=== PATIENT | male | born 1970 | race Hispanic/Latino ===

== ENCOUNTER → 2023-06-03 | Outpatient (CLI) | payer OTHER | LOC: M PLAIMG 15:20 | PROVIDERS: ATTEND Physician Assistant | DX: M25.551 Pain in right hip (principal); R60.9 Edema, unspecified; S73.191A Other sprain of right hip, initial encounter; Y93.9 Activity, unspecified; Y92.9 Unspecified place or not applicable ==

== ENCOUNTER → 2023-08-29 | Outpatient (CLI) | payer OTHER ==
[~2023-08-29] MED LIST: ISOVUE-300 61% 100ML VIAL As Ordered ONE; LIDOCAINE 1% MDV 20ML VIAL As Ordered ONE; PROHANCE 279.3MG/ML 5ML VIAL As Ordered ONE
== END ==
LOC: EDUNIT# 07-12 07:00 → M RAD 07:08
PROVIDERS: ATTEND Physician Assistant
DX: M25.512 Pain in left shoulder (principal); S46.012A Strain of muscle(s) and tendon(s) of the rotator cuff of left shoulder, initial encounter; M75.02 Adhesive capsulitis of left shoulder; X58.XXXA Exposure to other specified factors, initial encounter; Y92.9 Unspecified place or not applicable
CPT/HCPCS: 23350; 73040; 73223; A9576; Q9967

== ENCOUNTER 2023-11-19 14:26 | Emergency (ER) | payer OTHER ==
[~2023-11-19] VITALS: Ht 172.7 cm; Wt 101.6 kg
[2023-11-19 14:27] VITALS: BP 134/83; TEMP 97.2; O2SAT 95
[2023-11-19] MEDS ORDERED: BUPR300T92 (14:42)
== END 2023-11-19 17:38 | disposition home or self-care (01) ==
LOC: M ED 14:26
DX: J06.9 Acute upper respiratory infection, unspecified (principal); Z20.822 Contact with and (suspected) exposure to COVID-19; Z79.899 Other long term (current) drug therapy

== ENCOUNTER → 2024-02-17 | Outpatient (CLI) | payer OTHER ==
[~2024-02-17] MED LIST changes: +BUPR300T92; -PROHANCE 279.3MG/ML 5ML VIAL As Ordered ONE; +TRIAMCINOLONE ACETONIDE SUSP 40MG/ML 1ML VIAL As Ordered ONE
== END ==
LOC: M RAD 13:22
PROVIDERS: ATTEND Physician Assistant Surgical
DX: M25.551 Pain in right hip (principal)
CPT/HCPCS: 20610; 77002; J3301; Q9967

== ENCOUNTER 2024-12-18 07:23 | Emergency (ER) | payer OTHER ==
[~2024-12-18] VITALS: Ht 172.7 cm; Wt 94.5 kg
[~2024-12-18 07:23] MED LIST changes: +BUPR-597; -BUPR300T92; -ISOVUE-300 61% 100ML VIAL As Ordered ONE; -LIDOCAINE 1% MDV 20ML VIAL As Ordered ONE; -TRIAMCINOLONE ACETONIDE SUSP 40MG/ML 1ML VIAL As Ordered ONE
[2024-12-18] MEDS ORDERED: ONDA-282 PO (11:46)
[2024-12-18] MEDS: ACETAMINOPHEN 325 MG TAB PO ONE (11:56)
[2024-12-18] MEDS: ONDANSETRON 4MG ORAL DISINTEGRATING TAB PO ONE (11:56)
[2024-12-18 11:57] VITALS: BP 127/52; TEMP 98.1; O2SAT 99
== END 2024-12-18 11:58 | disposition home or self-care (01) ==
LOC: M ED 07:23
DX: S06.0XAA Concussion with loss of consciousness status unknown, initial encounter (principal); W01.198A Fall on same level from slipping, tripping and stumbling with subsequent striking against other object, initial encounter; Y92.89 Other specified places as the place of occurrence of the external cause; Y93.89 Activity, other specified; Y99.9 Unspecified external cause status; Z79.899 Other long term (current) drug therapy